=== PATIENT | female | born 1955 | race Caucasian/White ===

== ENCOUNTER 2021-08-22 08:00 | Day surgery (SDC) | payer OTHER ==
[~2021-08-22] VITALS: Ht 162.6 cm; Wt 69.2 kg
[~2021-08-22 08:00] MED LIST: TERB250 PO; VENL75ER PO
--- NOTE | 2021-08-22 09:06 | NUR ---
08/22/21905 JANET EVANS VACOMYACIN STARTED 0846 ON AN IV PUMP DUE TO PCN ALLERGY
--- NOTE | 2021-08-22 09:24 | NUR ---
08/22/21 0924 Marlena Alvarado BUPIVACAINE 0.5% 50 MLS MIXED W/ EPI 0.25 ML PER ORDER TO CONSTITITUE BUPIVACAINE 0.5% 1:200,000 FOR INJECTION AT [facility] BY DR. MO. 30 MLS [facility]
== END 2021-08-22 10:55 | disposition home or self-care (01) ==
LOC: ORSCSDS 08:00
PROVIDERS: Podiatrist Foot & Ankle Surgery
PROC: 0SGM04Z Fusion of Right Metatarsal-Phalangeal Joint with Internal Fixation Device, Open Approach (ICD-10-PCS; principal; 2021-08-22 09:15)
DX: M20.5X1 Other deformities of toe(s) (acquired), right foot (principal); I10 Essential (primary) hypertension; F41.8 Other specified anxiety disorders; E03.9 Hypothyroidism, unspecified; Z79.899 Other long term (current) drug therapy
CPT/HCPCS: A9270; C1713; C1769; J0171; J1100; J1885; J2250; J2370; J2405; J2704; J3010; J3370; J7120

== ENCOUNTER → 2023-03-02 | Outpatient (CLI) | payer OTHER | LOC: LAB SHORT 14:47 → PLD 14:47 | DX: D48.5 Neoplasm of uncertain behavior of skin (principal) | CPT/HCPCS: 88304 ==

== ENCOUNTER 2025-01-15 06:42 | Day surgery (SDC) | payer OTHER ==
[2025-01-15] VITALS (26 sets, daily range): BP systolic 108–149; BP diastolic 69–93
[~2025-01-15] VITALS: Ht 158 cm; Wt 67.0 kg
[~2025-01-15 06:42] MED LIST changes: +DULO60 PO; +Lactated Ringer's 1,000 ML IV SCH
[2025-01-15] MEDS ORDERED: propofoL 40 ML IV ONE (06:55)
[2025-01-15] MEDS ORDERED: ALLERCLEAR10 MG PO (07:14)
[2025-01-15] MEDS ORDERED: CALCIUM 500 MG1 EAC2 PO (07:15)
[2025-01-15] MEDS ORDERED: VITAMIN B-122000 MC1 PO (07:15)
--- NOTE | 2025-01-15 07:22 | NUR ---
History, Chart, Medications and Allergies reviewed before start of procedure. Patient up to Ambulate independently. Gait steady. Pre-Op teaching done. Pt verbalizes understanding. Patient confirms NPO status and agrees with scheduled surgery. Patient states colon prep results translucent yellow. Patient States Post-Procedure ride home has been arranged.
--- NOTE | 2025-01-15 07:40 | NUR ---
01/15/25 0719 Sumaya Johnson CONFIRMED AND REVIEWED H&P, MEDCICATIONS, ALLERGIES, MEDICAL HISTORY, RESPIRATORY HISTORY, VITAL SIGNS, 3-LEAD EKG, CONSENTS, AND PHYSICIAN ORDERS. PATIENT CONFIRMS NPO STATUS AND AGREES WITH SCHEDULED PROCEDURE. MONITOR INTACT WITH CONTINUOUS PULSE OXIMETRY, CAPNOGRAPHY, 3-LEAD EKG, INTERMITTENT BP. SUPPLEMENTAL O2 TO BE TITRATED THROUGHOUT PROCEDURE TO MAINTAIN O2 SATURATION ABOVE 90%. PATIENT DETERMINED TO BE ASA APPROPRIATE FOR PROPOFOL SEDATION PRIOR TO START OF PROCEDURE BY DR. GORDON MALLAMPATI CLASS 1 AIRWAY: COMPLETE VISULATIZATION OF THE SOFT PALATE.
--- NOTE | 2025-01-15 08:37 | NUR ---
Patient up to Ambulate independently. Gait steady. Discharge instructions reviewed with patient. Patient verbalizes understanding. Copy given to patient to take home. Patient States Post-Procedure ride home has been arranged. Discharged via wheelchair to private car for ride home.
== END 2025-01-15 08:36 | disposition home or self-care (01) ==
LOC: ORSCMMR 06:42 → ORD 07:30 → ORSCMMR 07:30
PROVIDERS: Internal Medicine Gastroenterology
PROC: 0DJD8ZZ Inspection of Lower Intestinal Tract, Via Natural or Artificial Opening Endoscopic (ICD-10-PCS; principal; 2025-01-15 07:30)
DX: Z12.11 Encounter for screening for malignant neoplasm of colon (principal); K64.8 Other hemorrhoids; K64.4 Residual hemorrhoidal skin tags; F32.A Depression, unspecified; Z90.49 Acquired absence of other specified parts of digestive tract; Z79.899 Other long term (current) drug therapy
CPT/HCPCS: J2704; J7120